=== PATIENT | female | born 1990 | race African-American/Black ===

== ENCOUNTER 2017-04-21 09:47 | Emergency (ER) | payer OTHER ==
[~2017-04-21] VITALS: Ht 165.1 cm; Wt 87.0 kg
[~2017-04-21 09:47] MED LIST: PRENCAP6 PO
--- NOTE | 2017-04-21 10:01 | PD ---
HPI Chief Complaint: Chest Pain Time Seen by Provider: 10:00 Travel History International Travel<30 days: No Contact w/Intl Traveler<30days: No Traveled to known affect area: No History of Present Illness HPI 26-year-old female came to the emergency room by EMS with history of feeling funny, palpitations, looking extremely anxious after she took for the first time this fact burning shake before starting her workup. After she took it she was on the treadmill for 10 minutes and had started to run when she started to feel like this. Vital signs were stable. Patient is not complaining of any chest pain to me per se. However seems extremely anxious and hyperventilating. She wanted to get some medicine that would bring this feeling down. Patient denied doing any drugs. She takes medications for high blood pressure. She was awake and answering questions appropriately. [facility] Past Medical History Narrative Medical List of her past medical, surgical, social and family history as reviewed from the nursing note. Anxiety: Yes Cardiovascular Problems: Yes Cerebrovascular Accident: No Diabetes: No Hypertension: Yes Myocardial Infarction: No Tetanus Vaccination: Unknown ?: Not : 2 Para: 0 Miscarriage: 1 Dilation and Curettage (D&C): Yes (04/2011) Social History Alcohol Use: Yes (OCC) Tobacco Use: No (SOCIAL) Substance Use: No Allergies-Medications (Allergen,Severity, Reaction): Coded Allergies: No Known Allergies (Unverified , 10/12/13) Comments No known drug allergies. Reported Meds & Prescriptions Reported Meds & Active Scripts Active Zofran Odt (Ondansetron Odt) 4 Mg Tab 4 Mg SL Q6HR PRN Reported Carvedilol 6.25 Mg Tab 6.25 Mg PO BID Amlodipine (Amlodipine Besylate) 10 Mg Tab 10 Mg PO DAILY Narrative Medication List of her home medications reviewed from the nursing note. Review of Systems Except as stated in HPI: all other systems reviewed are Neg Psychiatric: Positive: Anxiety Physical Exam Narrative GENERAL: Awake, alert, extremely anxious, hyperventilating SKIN: Focused skin assessment warm/dry. HEAD: Atraumatic. Normocephalic. EYES: Pupils equal and round. No scleral icterus. No injection or drainage. ENT: No nasal bleeding or discharge. Mucous membranes pink and moist. NECK: Trachea midline. No JVD. CARDIOVASCULAR: Regular rate and rhythm. No murmur appreciated. RESPIRATORY: No accessory muscle use. Hyperventilating. Clear to auscultation. Breath sounds equal bilaterally. GASTROINTESTINAL: Abdomen soft, non-tender, nondistended. Hepatic and splenic margins not palpable. MUSCULOSKELETAL: No obvious deformities. No clubbing. No cyanosis. No edema. NEUROLOGICAL: Awake and alert. No obvious cranial nerve deficits. Motor grossly within normal limits. Normal speech. PSYCHIATRIC: Appropriate mood and affect; insight and judgment normal. Data Data Last Documented VS Vital Signs Date Time Temp Pulse Resp B/P (MAP) Pulse Ox O2 Delivery O2 Flow Rate FiO2 04/21/17 13:54 75 19 139/89 (106) 99 04/21/17 12:28 Room Air 04/21/17 10:18 98.0 2.00 Orders Orders Lorazepam Inj (Ativan Inj) (04/21/17 10:15) Electrocardiogram (04/21/17 10:09) Basic Metabolic Panel (Bmp) (04/21/17 10:09) Complete Blood Count With Diff (04/21/17 10:09) Creatine Kinase (Cpk) (04/21/17 10:09) Troponin I (04/21/17 10:09) Thyroid Stimulating Hormone (04/21/17 10:09) Blood Glucose (04/21/17 10:09) Ecg Monitoring (04/21/17 10:09) Iv Access Insert/Monitor (04/21/17 10:09) Oximetry (04/21/17 10:09) Sodium Chloride 0.9% Flush (Ns Flush) (04/21/17 10:15) Sodium Chlor 0.9% 1000 Ml Inj (Ns 1000 M (04/21/17 10:09) Drug Screen, Random Urine (04/21/17 10:09) Alcohol (Ethanol) (04/21/17 10:09) Ondansetron Inj (Zofran Inj) (04/21/17 12:15) CKMB (04/21/17 12:38) CKMB% (04/21/17 12:38) Ed Discharge Order (04/21/17 13:32) Labs Laboratory Tests Test 04/21/17 10:40 04/21/17 10:45 04/21/17 12:38 White Blood Count 6.8 TH/MM3 Red Blood Count 4.95 MIL/MM3 Hemoglobin 14.5 GM/DL Hematocrit 42.4 % Mean Corpuscular Volume 85.6 FL Mean Corpuscular Hemoglobin 29.3 PG Mean Corpuscular Hemoglobin Concent 34.2 % Red Cell Distribution Width 13.8 % Platelet Count 345 TH/MM3 Mean Platelet Volume 9.4 FL Neutrophils (%) (Auto) 56.3 % Lymphocytes (%) (Auto) 31.3 % Monocytes (%) (Auto) 9.9 % Eosinophils (%) (Auto) 2.0 % Basophils (%) (Auto) 0.5 % Neutrophils # (Auto) 3.9 TH/MM3 Lymphocytes # (Auto) 2.1 TH/MM3 Monocytes # (Auto) 0.7 TH/MM3 Eosinophils # (Auto) 0.1 TH/MM3 Basophils # (Auto) 0.0 TH/MM3 CBC Comment DIFF FINAL Differential Comment Urine Opiates Screen NEG Urine Barbiturates Screen NEG Urine Amphetamines Screen NEG Urine Benzodiazepines Screen NEG Urine Cocaine Screen NEG Urine Cannabinoids Screen NEG Blood Urea Nitrogen 13 MG/DL Creatinine 0.82 MG/DL Random Glucose 105 MG/DL Calcium Level 8.6 MG/DL Sodium Level 138 MEQ/L Potassium Level 3.7 MEQ/L Chloride Level 108 MEQ/L Carbon Dioxide Level 20.6 MEQ/L Anion Gap 9 MEQ/L Estimat Glomerular Filtration Rate 102 ML/MIN Total Creatine Kinase 410 U/L Creatine Kinase MB 1.9 NG/ML Creatine Kinase MB % 0.5 % Troponin I LESS THAN 0.02 NG/ML Thyroid Stimulating Hormone 3rd Gen 0.558 uIU/ML Ethyl Alcohol Level LESS THAN 3 MG/DL MDM Medical Decision Making Medical Screen Exam Complete: Yes Emergency Medical Condition: Yes Medical Record Reviewed: Yes Interpretation(s) Twelve-lead EKG was reviewed by me. Normal sinus rhythm, normal axis, nonspecific ST-T wave changes. Heart rate of 76 bpm. Differential Diagnosis Reaction to the bodybuilding shake, electrolyte abnormalities Narrative Course 12:56 PM CBC and urine drug screen is back which are within normal limits. Awaiting for the chemistry. It was a week leg. Given 0.5 mg of Ativan IV upon arrival. This seems to bring her symptoms significantly down. Ever patient had an episode of diarrhea soon after arrival. She also complained of nausea. She was given IV Zofran. If the chemistries within normal limit patient will be discharged home. She will be given instructions not to take this powder product anymore. Procedures EKG Prior to Arrival: Yes Diagnosis Primary Impression: Adverse reaction to [id number] medication Qualified Codes: T50.905A - Adverse effect of unspecified drugs, medicaments and biological substances, initial encounter Additional Impression: Gastroenteritis Referrals: Primary Care Physician Additional Instructions: Take the medication as per the prescription direction. Drink lots of fluid. He should not be taking the diet powder again that quite possibly was the reason for your reaction. Return to the ER if condition worsens or any other new concerns. Otherwise follow-up with your primary care. Med/Other Pt SpecificInfo: Prescription(s) given Scripts Ondansetron Odt (Zofran Odt) 4 Mg Tab 4 MG SL Q6HR Y for Nausea/Vomiting, #10 TAB 0 Refills Prov: Lora Hammond MD 04/21/17 Disposition: 01 DISCHARGE HOME Condition: Stable Lora Hammond MD Apr 21, 2017 10:01
[2017-04-21 10:03] VITALS: BP 140/99; PULSE 84; RESP 19; TEMP 98.1; O2SAT 100
[2017-04-21] MEDS ORDERED: CARV6.252 PO (10:03)
[2017-04-21] MEDS ORDERED: AMLO10TA2 PO (10:03)
[2017-04-21] MEDS ORDERED: SODIUM CHLOR 0.9% 1000 ML INJ 1,000 ML IV SCH (10:09)
[2017-04-21] MEDS ORDERED: LORazepam 2 MG/ML VIAL IV PUSH ONE (10:15)
[2017-04-21] MEDS ORDERED: SODIUM CHLORIDE 0.9% FLUSH 10 ML FLUSH IV FLUSH PRN (10:15)
[2017-04-21 10:18] VITALS: BP 140/99; PULSE 84; RESP 19; TEMP 98; O2SAT 100
[2017-04-21 11:37] LABS: AUTOMATED NEUTROPHIL # 3.9 TH/MM3 (1.8-7.7); BASOPHIL % 0.5 % (0.0-2.0); EOSINOPHIL # 0.1 TH/MM3 (0-0.4); HEMATOCRIT 42.4 % (35.0-46.0); HEMOGLOBIN 14.5 GM/DL (11.6-15.3); LYMPH % 31.3 % (9.0-44.0); LYMPHOCYTE # 2.1 TH/MM3 (1.0-4.8); MEAN CELL VOLUME 85.6 FL (80.0-100.0); MEAN CORPUSCULAR HEMOGLOBIN 29.3 PG (27.0-34.0); MEAN CORPUSCULAR HGB CONC 34.2 % (32.0-36.0); MEAN PLATELET VOLUME 9.4 FL (7.0-11.0); MONO % 9.9 % (0.0-8.0); MONOCYTE # 0.7 TH/MM3 (0-0.9); NEUT % 56.3 % (16.0-70.0); PLATELET COUNT 345 TH/MM3 (150-450); RED BLOOD COUNT 4.95 MIL/MM3 (4.00-5.30); RED CELL DISTRIBUTION WIDTH 13.8 % (11.6-17.2); WHITE BLOOD COUNT 6.8 TH/MM3 (4.0-11.0)
[2017-04-21] MEDS ORDERED: ONDANSETRON HCL 4 MG/2 ML VIAL IV PUSH ONE (12:15)
[2017-04-21 12:28] VITALS: BP 145/79; PULSE 81; RESP 19; O2SAT 100
--- NOTE | 2017-04-21 13:18 | EKG ---
Date Performed: 04/21/2017 Time Performed: 10:15:43 PTAGE: 26 years EKG: Sinus rhythm NORMAL ECG NO PREVIOUS TRACING DOCTOR: Shree Andrade Interpretating Date/Time 04/21/2017 13:16:51
[2017-04-21 13:20] LABS: BICARBONATE 20.6 MEQ/L (21.0-32.0); BLOOD UREA NITROGEN 13 MG/DL (7-18); CALCIUM 8.6 MG/DL (8.5-10.1); CHLORIDE 108 MEQ/L (98-107); CREATININE 0.82 MG/DL (0.50-1.00); GLOMERULAR FILTRATION RATE 102 ML/MIN (>89); GLUCOSE,RANDOM 105 MG/DL (74-106); SODIUM (NA) 138 MEQ/L (136-145); TROPONIN I LESS THAN 0.02 NG/ML (0.02-0.05)
[2017-04-21] MEDS ORDERED: ZOFR4TAB3 SL (13:34)
[2017-04-21 13:54] VITALS: BP 139/89
== END 2017-04-21 13:55 | disposition home or self-care (01) ==
LOC: NEPD 09:47
DX: K52.9 Noninfective gastroenteritis and colitis, unspecified (principal); T50.905A Adverse effect of unspecified drugs, medicaments and biological substances, initial encounter; I10 Essential (primary) hypertension
CPT/HCPCS: 80048; 80307; 82550; 82552; 84443; 84484; 85025; 93005; 96361; 96374; 96375; 99284; J2060; J2405; J7030

== ENCOUNTER 2017-06-23 19:21 | Emergency (ER) | payer SELFPAY ==
[~2017-06-23 19:21] MED LIST changes: +AMLO10TA2 PO; +CARV6.252 PO; -PRENCAP6 PO; +ZOFR4TAB3 SL
[2017-06-23 19:33] VITALS: BP 160/88; PULSE 83; RESP 18; TEMP 98.4; O2SAT 99
[2017-06-23] MEDS ORDERED: cefTRIAXone 250 MG VIAL IM ONE (19:45)
[2017-06-23] MEDS ORDERED: LIDOCAINE HCL 1% 50 ML VIAL IM ONE (19:45)
[2017-06-23] MEDS ORDERED: AZITHROMYCIN PWD FOR SUSP 1 GM PACKET PO ONE (19:45)
--- NOTE | 2017-06-23 19:48 | PD ---
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 This started about 4 days ago. Patient states about a week ago she had intercourse with the father of her child who she is not in a monogamous relationship with. She states that the condom broke. She is concerned that she may have gotten an STD. Denies any pelvic pain. No nausea or vomiting. No fever chills. She has no other symptoms to report at this time. [facility] Past Medical History Anxiety: Yes Cardiovascular Problems: Yes Cerebrovascular Accident: No Diabetes: No Diminished Hearing: No Hypertension: Yes Immunizations Current: Yes Myocardial Infarction: No ?: Not LMP: 06/15/17 : 2 Para: 0 Miscarriage: 1 Dilation and Curettage (D&C): Yes (04/2011) Social History Alcohol Use: Yes ([facility]) Tobacco Use: Yes Substance Use: No Allergies-Medications (Allergen,Severity, Reaction): Coded Allergies: No Known Allergies (Unverified Adverse Reaction, Unknown, 06/23/17) Reported Meds & Prescriptions Reported Meds & Active Scripts Active Reported Carvedilol 6.25 Mg Tab 6.25 Mg PO BID Amlodipine (Amlodipine Besylate) 10 Mg Tab 10 Mg PO DAILY Review of Systems Except as stated in HPI: all other systems reviewed are Neg Physical Exam Narrative GENERAL: Well-nourished, well-developed female patient in no acute distress SKIN: Focused skin assessment warm/dry. HEAD: Normocephalic. EYES: No scleral icterus. No injection or drainage. NECK: Supple, trachea midline. No JVD or lymphadenopathy. CARDIOVASCULAR: Regular rate and rhythm without murmurs, gallops, or rubs. RESPIRATORY: Breath sounds equal bilaterally. No accessory muscle use. GASTROINTESTINAL: Abdomen soft, non-tender, nondistended. No guarding. No rebound tenderness GENITOURINARY: Normal external genitalia without lesions or erythema. Vaginal vault without blood. There is a yellow white discharge within the vaginal vault. Cervical os is friable but was closed with same drainage. No cervical motion tenderness. Uterus nontender and nonenlarged. Bilateral adnexa nontender without masses. MUSCULOSKELETAL: No cyanosis, or edema. BACK: Nontender without obvious deformity. No CVA tenderness. Data Data Last Documented VS Vital Signs Date Time Temp Pulse Resp B/P (MAP) Pulse Ox O2 Delivery O2 Flow Rate FiO2 06/23/17 19:33 98.4 83 18 160/88 (112) 99 Orders Orders Gc And Chlamydia Pcr (06/23/17 19:42) Wet Prep Profile (06/23/17 19:42) Urinalysis - C+S If Indicated (06/23/17 19:42) Azithromycin Powd Pack (Zithromax Powd P (06/23/17 19:45) Ceftriaxone Inj (Rocephin Inj) (06/23/17 19:45) Lidocaine 1% Inj (50 Ml) (Xylocaine 1% I (06/23/17 19:45) Ed Urine Pregnancytest Poc (06/23/17 19:42) Metronidazole (Flagyl) (06/23/17 21:15) Ed Discharge Order (06/23/17 21:07) Labs Laboratory Tests Test 06/23/17 19:55 06/23/17 20:00 Urine Color LIGHT-YELLOW Urine Turbidity CLEAR Urine pH 6.5 Urine Specific [place] 1.011 Urine Protein NEG mg/dL Urine Glucose (UA) NEG mg/dL Urine Ketones NEG mg/dL Urine Occult Blood NEG Urine Nitrite NEG Urine Bilirubin NEG Urine Urobilinogen LESS THAN 2.0 MG/DL Urine Leukocyte Esterase LARGE Urine RBC 3 /hpf Urine WBC 6 /hpf Urine Squamous Epithelial Cells 2 /hpf Urine Bacteria RARE /hpf Microscopic Urinalysis Comment CULT NOT INDICATED Clue Cells (Wet Prep) NONE SEEN Vaginal Trichomonas (Wet Prep) PRESENT Vaginal Yeast (Wet Prep) NONE SEEN MDM Medical Decision Making Medical Screen Exam Complete: Yes Emergency Medical Condition: Yes Medical Record Reviewed: Yes Differential Diagnosis STD versus BV versus UTI Narrative Course 26-year-old female presents emergency department for evaluation of vaginal discharge. Patient appears without distress. Abdominal exam is benign. Patient does have a friable cervix with a yellow-white discharge in the vaginal vault. She is treated empirically for gonorrhea and chlamydia. Wet prep is sent. 2100 at prep results positive for trichomonas. Patient is given 2 g of Flagyl. She is counseled on safe sex practices. She is encouraged to follow-up with primary care provider, see gynecology evaluation or [facility] department visit for further STD testing. Diagnosis Primary Impression: Trichomonas vaginalis (TV) infection Additional Impression: Vaginal discharge Referrals: [facility] Dept. Patient Instructions: General Instructions, Trichomoniasis (ED) Additional Instructions: You have tested positive for trichomonas. This is a sexually transmitted disease. You have been treated for this here in the emergency department however your partner will need to be treated for it as well or you will re- expose YOURself. You have also been treated for gonorrhea and chlamydia. These tests are still pending. 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 It is important that you utilize condom prophylaxis Return immediately to the emergency department with any acute worsening symptoms. Disposition: 01 DISCHARGE HOME Condition: Stable Emmie Pappas June 23, 2017 19:48
[2017-06-23 20:24] LABS: BACTERIA, URINE RARE /hpf; BILIRUBIN, URINE NEG (NEG); BLOOD, URINE NEG (NEG); GLUCOSE,URINE NEG (NEG); KETONE, URINE NEG (NEG); NITRITE,URINE NEG (NEG); PH, URINE 6.5 (5.0-8.5); SQUAMOUS EPITHELIAL CELL URINE 2 /hpf (0-5); URINE COLOR LIGHT-YELLOW (YELLW/STRAW); URINE LEUKOCYTE ESTERASE LARGE (NEG)
[2017-06-23] MEDS ORDERED: metroNIDAZOLE 500 MG TAB PO ONE (21:15)
== END 2017-06-23 21:27 | disposition home or self-care (01) ==
LOC: NEPC 19:21
DX: A59.01 Trichomonal vulvovaginitis (principal); I10 Essential (primary) hypertension; Z72.0 Tobacco use
CPT/HCPCS: 81001; 84703; 87210; 87491; 87591; 96372; 99283; J0696

== ENCOUNTER 2017-07-17 18:11 | Emergency (ER) | payer SELFPAY ==
[~2017-07-17 18:11] MED LIST changes: -ZOFR4TAB3 SL
[2017-07-17 18:22] VITALS: BP 203/98; PULSE 66; RESP 18; TEMP 97.9; O2SAT 100
[2017-07-17 18:47] VITALS: BP 191/102; PULSE 66; RESP 16; O2SAT 99
[2017-07-17] MEDS ORDERED: CARV6.252 PO (19:26)
[2017-07-17] MEDS ORDERED: METR1TAB76 PO (19:26)
[2017-07-17] MEDS ORDERED: BACT800T5 PO (19:26)
[2017-07-17] MEDS ORDERED: AMLO10TA2 PO (19:26)
--- NOTE | 2017-07-17 19:39 | PD ---
HPI Chief Complaint: Lump, Cyst, Hernia Time Seen by Provider: 19:22 Travel History International Travel<30 days: No Contact w/Intl Traveler<30days: No Traveled to known affect area: No History of Present Illness HPI 26-year-old -[place] female presents emergency department with question of Bartholin's gland cyst. Patient has history of for these in the past. She states it does not significantly pain her, and there is no drainage, but she is concerned as it is more swollen over the last week. 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 She went to have it checked out to make sure it was not worsening. She is also out of her blood pressure medications including amlodipine and carvedilol. Patient has no fever, chills, dysuria, or diarrhea. She denies vaginal discharge. Patient was recently treated the beginning of June for trichomonas, gonorrhea and chlamydia. She has no known drug allergies. PFSH Past Medical History Anxiety: Yes Cardiovascular Problems: Yes Cerebrovascular Accident: No Diabetes: No Diminished Hearing: No Hypertension: Yes Immunizations Current: Yes Myocardial Infarction: No Tetanus Vaccination: Unknown Influenza Vaccination: No ?: Not LMP: 4 : 2 Para: 0 Miscarriage: 1 : 1 Dilation and Curettage (D&C): Yes (04/2011) Social History Alcohol Use: Yes ([facility]) Tobacco Use: Yes Substance Use: No Allergies-Medications (Allergen,Severity, Reaction): Coded Allergies: No Known Allergies (Unverified Adverse Reaction, Unknown, 07/17/17) Reported Meds & Prescriptions Reported Meds & Active Scripts Active Bactrim DS (Sulfamethoxazole-Trimethoprim) 800-160 Mg Tab 1 Tab PO BID Metronidazole 500 Mg Tab 500 Mg PO TID 7 Days Carvedilol 6.25 Mg Tab 6.25 Mg PO BID Amlodipine (Amlodipine Besylate) 10 Mg Tab 10 Mg PO DAILY Review of Systems Except as stated in HPI: all other systems reviewed are Neg General / Constitutional: No: Fever Eyes: No: Visual changes HENT: No: Headaches Cardiovascular: No: Chest Pain or Discomfort Respiratory: No: Shortness of Breath Gastrointestinal: No: Abdominal Pain Genitourinary: No: Dysuria Musculoskeletal: No: Pain Skin: No Rash Neurologic: No: Weakness Psychiatric: No: Depression Endocrine: No: Polydipsia Hematologic/Lymphatic: No: Easy Bruising Physical Exam Narrative GENERAL: Patient appears in no acute distress. SKIN: Warm and dry. Normal color. Normal turgor. HEAD: Atraumatic. Normocephalic. EYES: Pupils equal and round. No scleral icterus. No injection or drainage. ENT: No nasal bleeding or discharge. Mucous membranes pink and moist. Pharynx is clear. Airways patent NECK: Trachea midline. Supple and nontender CARDIOVASCULAR: Regular rate and rhythm. RESPIRATORY: No accessory muscle use. Clear to auscultation. Breath sounds equal bilaterally. GASTROINTESTINAL: Abdomen soft, non-tender, nondistended. Hepatic and splenic margins not palpable. GENITALIA: Patient's genitalia was examined by myself with nursing staff as assembly leader, showing a nontender swelling to the left lower labia, without pointing or signs of deep abscess currently I do not recommend I&D at this time MUSCULOSKELETAL: Extremities without clubbing, cyanosis, or edema. No obvious deformities. NEUROLOGICAL: Awake and alert. No obvious cranial nerve deficits. Motor grossly within normal limits. Five out of 5 muscle strength in the arms and legs. Normal speech. PSYCHIATRIC: Appropriate mood and affect; insight and judgment normal. Data Data Last Documented VS Vital Signs Date Time Temp Pulse Resp B/P (MAP) Pulse Ox O2 Delivery O2 Flow Rate FiO2 07/17/17 18:47 66 16 191/102 (131) 99 Room Air 07/17/17 18:22 97.9 MDM Medical Decision Making Medical Screen Exam Complete: Yes Emergency Medical Condition: Yes Medical Record Reviewed: Yes Differential Diagnosis Early Bartholin's gland cyst. Cellulitis. Hypertension. Narrative Course I do not feel I&D of this area would be appropriate at this time. Patient will be started on Bactrim DS twice daily 7 days. Patient also placed on metronidazole 500 mg 3 times daily for 7 days. Patient is to use hot compresses to this area as discussed. Patient given refills of her amlodipine 10 mg daily as well as her carvedilol 6.25 twice daily for 1 month. Patient is to [facility] as [facility]. Patient can return to emergency department with worsening symptoms as discussed. Diagnosis Primary Impression: Bartholin gland cyst Additional Impression: Essential hypertension Referrals: [facility] call for appointment Patient Instructions: 2 Gram Sodium Diet (GEN), Bartholin Cyst (ED), General Instructions Additional Instructions: I do not feel I&D of this area would be appropriate at this time. Patient will be started on Bactrim DS twice daily 7 days. Patient also placed on metronidazole 500 mg 3 times daily for 7 days. Patient is to use hot compresses to this area as discussed. Patient given refills of her amlodipine 10 mg daily as well as her carvedilol 6.25 twice daily for 1 month. Patient is to follow-up with the women's center as discussed. Patient can return to emergency department with worsening symptoms as discussed. Med/Other Pt SpecificInfo: Prescription(s) given Scripts Sulfamethoxazole-Trimethoprim (Bactrim DS) 800-160 Mg Tab 1 TAB PO BID for Infection, #14 TAB 0 Refills Prov: Anna Humphrey MD 07/17/17 Metronidazole (Metronidazole) 500 Mg Tab 500 MG PO TID for Infection for 7 Days, TAB 0 Refills Prov: Anna Humphrey MD 07/17/17 Carvedilol (Carvedilol) 6.25 Mg Tab 6.25 MG PO BID, #60 TAB 0 Refills Prov: Anna Humphrey MD 07/17/17 Amlodipine (Amlodipine) 10 Mg Tab 10 MG PO DAILY for Blood Pressure Management, #30 TAB 0 Refills Prov: Anna Humphrey MD 07/17/17 Disposition: 01 DISCHARGE HOME Condition: Stable Veto Reeves July 17, 2017 19:39
== END 2017-07-17 19:50 | disposition home or self-care (01) ==
LOC: NEPC 18:11
DX: N75.0 Cyst of Bartholin's gland (principal); I10 Essential (primary) hypertension; Z72.0 Tobacco use
CPT/HCPCS: 99283